=== PATIENT | male | born 2005 | race Caucasian/White ===

== ENCOUNTER 2025-05-09 19:21 | Emergency (ER) | payer SELFPAY ==
[2025-05-09 19:21] VITALS: BP 120/71; PULSE 132; RESP 22; TEMP 37.3; O2SAT 99; BMI 16.7
--- NOTE | 2025-05-09 19:30 | ECG_ITS ---
[employer] Test Date: 2025-05-09 Pat Name: Ashwin Peck Department: Room: Gender: Male [employer]inder[employer] Assistant: : 2005 Requested By: Constantin Garduno Order Number: [id number] Bowman MD: Justin Morrison M.D. Measurements Intervals [place] Rate: 101 P: 77 NH: 155 QRS: 66 QRSD: 82 T: 81 QT: 329 QTc: 427 Interpretive Statements SINUS TACHYCARDIA POSSIBLE LEFT ATRIAL ENLARGEMENT [-0.1mV P-WAVE IN V1/V2] POSSIBLE RIGHT VENTRICULAR CONDUCTION DELAY [RSR (QR) IN V1/V2] ABNORMAL RHYTHM ECG No previous ECG available for comparison Electronically Signed On 05-09-2025 22:44:12 CDT by Justin Morrison M.D. [email or web address]
--- NOTE | 2025-05-09 19:32 | W.ED.ANXIETY ---
HPI - Anxiety General: Chief Complaint: Anxiety Stated Complaint: ANXIETY Time Seen by Provider: 05/09/25 19:22 History of Present Illness: Chief complaint is anxiety, numbness and tingling all over, racing heartbeat and trouble breathing and shallow breathing, feeling like his arms and legs were freezing up and he could not move Related Data Allergies Allergy/AdvReac Type Severity Reaction Status Date / Time red dye Allergy ADR-Agitate Verified 05/09/25 19:28 d Physical Exam Narrative: EXAM NARRATIVE: Patient is very anxious. No signs of trauma. Neck is supple. Pupils equal and reactive. Normal conjunctiva. Full range ocular motion. Heart tachycardic. Lung sounds are clear. Abdomen soft nontender. Extremities warm well-perfused. No calf tenderness pitting edema. No drift in his arms or legs. Speech is clear. Patient very anxious. Denies suicidal ideation. Skin appears normal. Moist mucous membranes. Course Vital Signs: Vital signs: Vital Signs Temperature 99.1 F 05/09/25 19:21 Pulse Rate 132 H 05/09/25 19:21 Respiratory Rate 22 H 05/09/25 19:21 Blood Pressure 117/76 05/09/25 19:33 Pulse Oximetry 100 05/09/25 19:33 Oxygen Delivery Me thod Room Air 05/09/25 19:21 MDM - Anxiety Medical Decision Making Patient states that his aunt was shaking and having a seizure and he became very anxious and had to call the ambulance. He denies any toxin exposure or exposure to carbon oxide. He denies any drug use other than marijuana to help his anxiety. He states he has chronic anxiety and has had panic attacks before. He states when he was trying to call the ambulance and take care of his aunt he became extremely anxious. He states he was breathing very shallow and fast and felt like he could not get enough air and started feeling numb and tingly all over and then he started having spasms of his arms and feeling like he could not move. History also obtained from EMS. Patient observed in the emergency department and gradually continues to improve. With controlled breathing and trying to calm himself his symptoms have resolved. Patient also was tachycardic and I gave him 1 L normal saline IV fluid which she states helped. He states he is had some darker urine. He denies any trauma or injury or significant heat exposure by check CK. This was not elevated. Denies any stimulant use. Checked electrolytes and CBC and that shows hypokalemia which was repleted but otherwise no significant acute abnormality. Patient EKG to my interpretation shows sinus tachycardia with rate 101 bpm. He denies any chest pain to suggest acute AL. He denies pleurisy or recent mobility or history to suggest PE. No cough or hemoptysis. Denies fever. Urine drug screen positive for marijuana consistent with history. Patient now much improved. He states he feels much much better and feels ready to go home. He denies suicidal ideation. Advised patient very broad differential including cardiac dysrhythmia, electrolyte abnormality, dehydration, as well as pheochromocytoma, withdrawal, infectious process, blood loss, among many others however he denies black or bloody stools or fever cough or change in urination other than as above or any cessation of medications or substances. Patient states he feels safe at home. Will discharge home as per patient request. Of note patient's bicarb was low which may have been related to dehydration or hyperventilation or toxin exposure among others. Again patient denies substance abuse other than marijuana or any toxin exposure or ingestion. Lab Data 05/09/25 19:39 05/09/25 19:39 Laboratory Results WBC 11.83 10^3/uL (4.5-13.0) 05/09/25 19:39 RBC 5.11 10^6/uL (3.85-5.65) 05/09/25 19:39 Hgb 14.80 g/dL (13.2-15.6) 05/09/25 19:39 Hct 43.2 % (37-53) 05/09/25 19:39 MCV 84.5 fl (82-101) 05/09/25 19:39 MCH 29.0 pg (27-33) 05/09/25 19:39 MCHC 34.3 g/dL (30-55) 05/09/25 19:39 RDW 13.2 % (12.1-15.1) 05/09/25 19:39 Plt Count 299 10^3/cmm (157-399) 05/09/25 19:39 MPV 10.0 fL (7.4-10.4) 05/09/25 19:39 Neut % (Auto) 54.5 % 05/09/25 19:39 Lymph % (Auto) 35.8 % 05/09/25 19:39 [place] % (Auto) 8.0 % 05/09/25 19:39 Eos % (Auto) 0.6 % 05/09/25 19:39 Baso % (Auto) 0.8 % 05/09/25 19:39 Neut # (Auto) 6.46 10^3/uL (1.8-8.0) 05/09/25 19:39 Lymph # (Auto) 4.2 10^3/uL (1.5-6.5) 05/09/25 19:39 [place] # (Auto) 1.0 10^3/uL (0.2-0.9) H 05/09/25 19:39 Eos # (Auto) 0.1 10^3/uL (0.0-0.8) 05/09/25 19:39 Baso # (Auto) 0.1 10^3/uL (0.0-0.1) 05/09/25 19:39 Nucleated RBC % (auto) 0 % 05/09/25 19:39 Nucleated RBCs # 0.0 /100WBC 05/09/25 19:39 Sodium 140 mmol/L (136-145) 05/09/25 19:39 Potassium 3.3 mmol/L (3.5-5.1) L 05/09/25 19:39 Chloride 103 mmol/L (98-107) 05/09/25 19:39 Carbon Dioxide 17 mmol/L (22-29) L 05/09/25 19:39 Anion Gap 23.3 (5-19) H 05/09/25 19:39 BUN 19 mg/dL (6-20) 05/09/25 19:39 Creatinine 1.0 mg/dL (0.7-1.2) 05/09/25 19:39 GFR Calculation 95.3 mL/min (90-130) 05/09/25 19:39 Glucose 109 mg/dL (65-115) 05/09/25 19:39 Calculated Osmolality 293 mOsm/kg (285-295) 05/09/25 19:39 Calcium 9.8 mg/dL (8.5-10.5) 05/09/25 19:39 Total Bilirubin 1.2 mg/dL (0.15-1.2) 05/09/25 19:39 AST 16 U/L (0-40) 05/09/25 19:39 ALT 11 U/L (0-41) 05/09/25 19:39 Alkaline Phosphatase 123 U/L (40-130) 05/09/25 19:39 Creatine Kinase 149 U/L (39-308) 05/09/25 19:39 Total Protein 7.9 g/dL (6.6-8.7) 05/09/25 19:39 Albumin 4.9 g/dL (3.5-5.2) 05/09/25 19:39 Globulin 3.0 g/dL (1.3-4.6) 05/09/25 19:39 TSH 1.84 uIU/mL (0.27-4.20) 05/09/25 19:39 Urine Color Yellow (Yellow) 05/09/25 20:06 Urine Appearance Clear (CLEAR) 05/09/25 20:06 Urine pH 7.0 (5-7) 05/09/25 20:06 Ur Specific [place] 1.022 (1.005-1.030) 05/09/25 20:06 Urine Protein Negative (Negative) 05/09/25 20:06 Urine Glucose (UA) Negative (Normal) 05/09/25 20:06 Urine Ketones Trace (Negative) 05/09/25 20:06 Urine Blood Negative (Negative) 05/09/25 20:06 Urine Nitrate Negative (Negative) 05/09/25 20:06 Urine Bilirubin Negative (Negative) 05/09/25 20:06 Urine Urobilinogen 2.0 mg/dL (Negative) H 05/09/25 20:06 Ur Leukocyte Esterase Negative (Negative) 05/09/25 20:06 Urine RBC 0-2 /hpf (0-2) 05/09/25 20:06 Urine WBC 0-5 /hpf (0-5) 05/09/25 20:06 Ur Squamous Epith Cells 0-5 /hpf (0-5) 05/09/25 20:06 Amorphous Sediment Not Reportable 05/09/25 20:06 Urine Bacteria None seen /hpf (NONE) 05/09/25 20:06 Hyaline Casts 0.40 /lpf 05/09/25 20:06 Urine Opiates Screen Negative ng/mL (Negative) 05/09/25 20:06 Ur Barbiturates Screen Negative ng/mL (Negative) 05/09/25 20:06 Ur Phencyclidine Scrn Negative ng/mL (Negative) 05/09/25 20:06 Ur Amphetamines Screen Negative ng/mL (Negative) 05/09/25 20:06 U Benzodiazepines Scrn Negative ng/mL (Negative) 05/09/25 20:06 Urine Cocaine Screen Negative ng/mL (Negative) 05/09/25 20:06 U Marijuana (THC) Screen Positive ng/mL (Negative) H 05/09/25 20:06 Ethyl Alcohol < 10 mg/dL (0-10) 05/09/25 19:39 No radiology studies performed this visit Discharge Plan Discharge Patient Disposition: Home Clinical Impression: Acute anxiety, Hyperventilation, Panic disorder Condition: Stable Discharge Orders: Discharge ED (Routine); Ordered 05/09/25 Ordered By: Constantin Garduno Referrals: John Limon MD [Primary Care Provider, [facility]] Patient Instructions: Patient Portal & Miguel Instructions Activity Restrictions/Additional Instructions: Follow-up on your test results with your doctor. Come back if not feeling well, fever, vomiting, weakness, trouble breathing, chest pain, passing out, any worse or concerns. Make sure to drink plenty of fluid. Follow-up with your doctor for recheck within the next 3 to 5 days. Come back if not feeling well or any concerns Print Language: [place] Coding Level of Care Code ED Field Recruiter for Joel Chacko
[2025-05-09 19:33] VITALS: BP 117/76; O2SAT 100
[2025-05-09 19:46] LABS: Hematocrit 43.2 % (37-53); Hemoglobin 14.80 g/dL (13.2-15.6); Mean Corpuscular HGB Conc 34.3 g/dL (30-55); Mean Corpuscular Hemoglobin 29.0 pg (27-33); Mean Corpuscular Volume 84.5 fl (82-101); Nucleated Red Blood Cells % 0 %; Platelet Count 299 10^3/cmm (157-399); Red Blood Count 5.11 10^6/uL (3.85-5.65); White Blood Count 11.83 10^3/uL (4.5-13.0)
[2025-05-09 20:18] LABS: Alanine Aminotransferase 11 U/L (0-41); Albumin Level 4.9 g/dL (3.5-5.2); Alkaline Phosphatase 123 U/L (40-130); Aspartate Amino Transferase 16 U/L (0-40); Blood Urea Nitrogen 19 mg/dL (6-20); Calcium 9.8 mg/dL (8.5-10.5); Carbon Dioxide 17 mmol/L (22-29); Chloride 103 mmol/L (98-107); Creatinine Clr Calc Pharmacy 90.7183; Globulin 3.0 g/dL (1.3-4.6); Glucose 109 mg/dL (65-115); Osmolality Calculated 293 mOsm/kg (285-295); Sodium 140 mmol/L (136-145); Thyroid Stimulating Hormone 1.84 uIU/mL (0.27-4.20); Total Protein 7.9 g/dL (6.6-8.7)
[2025-05-09 20:21] LABS: Alcohol Level < 10 mg/dL (0-10)
[2025-05-09 20:24] LABS: Glucose Urine UA Negative (Normal); Nitrate Urine Negative (Negative); Specific Gravity, Urine 1.022 (1.005-1.030)
[2025-05-09 20:26] LABS: Anion Gap 23.3 (5-19); Potassium 3.3 mmol/L (3.5-5.1)
[2025-05-09 20:30] LABS: PCP Screen Urine Negative (Negative)
[2025-05-09 21:37] VITALS: BP 124/79; PULSE 77; RESP 18; O2SAT 98
== END 2025-05-09 21:37 | disposition home or self-care (01) ==
PROVIDERS: Emergency Provider Emergency Medicine; PCP Family Medicine
DX: F41.8 Other specified anxiety disorders (principal); R06.4 Hyperventilation; F41.0 Panic disorder [episodic paroxysmal anxiety]
CPT/HCPCS: 80053; 80306; 80307; 81001; 82550; 84443; 85025; 93005; 99284; J7030; J9999